=== PATIENT | male | born 2000 | race Caucasian/White ===

== ENCOUNTER 2019-12-22 20:35 | Emergency (ER) | payer OTHER ==
--- OUTSIDE RECORDS SUMMARY | 2019-12-22 20:38 | XMS REPORT ---
:2000 Author Organization eClinicalWorks Care Team Providers Name Role Phone Conteh [facility] Provider Role Unavailable Allergies, Adverse Reactions, Alerts Substance Reaction Event Type N.K.D.A. Info Not Available Non Drug Allergy Problems Problem Type Condition Code Onset Dates Condition Statu s Assessment Adult BMI 25.0-25.9 kg/sq m Z68.25 Active Assessment Insomnia, unspecified type G47.00 A ctive Problem Current moderate episode of major F32.1 Active depressive disorder without prior episode Problem Generalized anxiety disorder F41.1 Active Problem Insomnia, unspecified type G47.00 A ctive Assessment Current moderate episode of major F32.1 Active depressive disorder without prior episode Assessment Generalized anxiety disorder F41.1 Active Assessment Well adult on routine health check Z00.00 Active Medications Medication Code Code Instructions Start End Date Status Dosage System Date Trazodone HCl ND 50541406987 100 MG Orally December 11, Active Take 1/2 Once a day 2019 tab QHS x 1 week then 1 tab QHS Zoloft ND 21712436865 100 MG Orally Active 1 tabl et Once a day Results No Known Results Summary Purpose eClinicalWorks Submission
--- OUTSIDE RECORDS SUMMARY | 2019-12-22 20:38 | XMS REPORT | Continuity of Care Document ---
:2000 Author Organization [facility] t Address [address] [place] [address] Care Team Providers Name Role Phone Unavailable Unavailable Unavailable Problems Condition Condition Condition Status Onset Resolution Last Treating Co mments Source Name Details Category Date Date Treatment Clinician Date Current Current Diagnosis Active [facility] episode of episode of Me moria major major l depressive depressive Ou tpati disorder disorder ent without without Clinics prior prior episode episode Generalize Generalize Problem Active [facility] d anxiety d anxiety [facility] - disorder disorder [facility] Insomnia, Insomnia, Problem Active [facility] unspecifie unspecifie Arabella kes - d type d type [facility] Allergies, Adverse Reactions, Alerts This patient has no known allergies or adverse reactions. Medications Ordered Filled Start Stop Current Ordering Indication Dosage Frequency Signature Comments Components Source Medication Medication Date Date Medication? Clinician (SIG) Name Name Trazodone Trazodone Yes Darius Take 1/[address] [facility] [address] HCl HCl 7-08 Conteh tab QHS x [facility] - 00:00: 1 week Memoria 00 then 1 tab l [facility] Zoloft Zoloft Yes Darius Take 1/[address] 3-20 Conteh tab QD x 1 [facility] - 00:00: week then Memoria 00 take 1 tab l QD [facility] Procedures This patient has no known procedures. Encounters Start End Encounter Admission Attending Care Care Encounter Source Date/Time Date/Time Type Type Clinicians Facility Department ID 2019-12-18 2019-12-18 [facility] [id number] [address] 11:17:00 11:17:00 t MAD Incubator [facility] Medicine Medicine [facility] 2019-12-12 2019-12-12 [facility] [id number] [address] 08:00:00 08:00:00 t MAD Incubator [facility] Medicine Outpati ent Clinics 2019-09-12 2019-09-12 [facility] [id number] 08:30:00 08:30:00 t MAD Incubator [facility] Medicine Outpati ent Clinics 2019-06-13 2019-06-13 [facility] [id number] 08:30:00 08:30:00 t MAD Incubator [facility] Medicine Outpati ent Clinics 2019-02-22 2019-02-22 [facility] [id number] [address] 11:15:00 11:15:00 t MAD Incubator [facility] Medicine Outpati ent Clinics 2018-09-26 2018-09-26 [facility] [id number] 14:45:00 14:45:00 t MAD Incubator [facility] Medicine Outpati ent Clinics 2018-08-23 2018-08-23 [facility] [id number] 10:15:00 10:15:00 t MAD Incubator [facility] Medicine Outpati ent Clinics Results This patient has no known results.
--- OUTSIDE RECORDS SUMMARY | 2019-12-22 20:38 | XMS REPORT ---
:2000 Author Organization eClinicalWorks Care Team Providers Name Role Phone Wero Darius Provider Role Unavailable Allergies No Known Allergies Problems Problem Type Condition Code Onset Dates Condition Statu s Problem Current moderate episode of major F32.1 Active depressive disorder without prior episode Problem Generalized anxiety disorder F41.1 Active Problem Insomnia, unspecified type G47.00 A ctive Assessment Current moderate episode of major F32.1 Active depressive disorder without prior episode Medications Medication Code Code Instructions Start End Status Dosage System Date Date Zoloft ND 04116726149 50 MG Orally August Inactive Take 1 /2 Once a day 2018 tab QD x 1 week then take 1 tab QD Trazodone HCl ND [id number] 100 MG Orally December 11 Take 1/2 Once a day 2019 tab QHS x 1 week then 1 tab QHS Results No Known Results Summary Purpose eClinicalWorks Submission
--- NOTE | 2019-12-23 00:21 | EDPHYS ---
Physician Documentation [facility] Name: Kel Caraballo Age: 19 yrs Sex: Male : 2000 Arrival Date: 12/22/2019 Time: 20:38 Bed 18 Private MD: Wero [facility] ED Physician Helio Friedman HPI: 12/22 00:12 This 19 yrs old Male presents to ER via Ambulatory with complaints of Fall mh7 Injury, Head Injury Without LOC-Adult. 00:12 Details of fall: The patient fell from an upright position, while walking. Onset: The mh7 symptoms/episode began/occurred today, at 19:00. Associated injuries: The patient sustained injury to the head, contusion. Severity of symptoms: At their worst the symptoms were mild, earlier today, in the emergency department the symptoms have improved, markedly. Patient states that he slipped and fell due to wet floor at work tonight. He states that he hit the back of his head on the floor. He denies any LOC or neck pain. He states that his work sent him to the ER for evaluation.. Historical: - Allergies: 12/21 20:54 No Known Allergies; ll1 - PSHx: 20:54 None; ll1 - Immunization history:: Flu vaccine is up to date. - Social history:: Smoking status: Patient/guardian denies using tobacco, Stopped _ months ago 3 Patient/guardian denies using alcohol, street drugs. ROS: 12/22 00:15 Constitutional: Negative for fever, chills, and weight loss, Eyes: Negative for injury, mh7 pain, redness, and discharge, ENT: Negative for injury, pain, and discharge, Neck: Negative for injury, pain, and swelling, Cardiovascular: Negative for chest pain, palpitations, and edema, Respiratory: Negative for shortness of breath, cough, wheezing, and pleuritic chest pain, Abdomen/GI: Negative for abdominal pain, nausea, vomiting, diarrhea, and constipation, Back: Negative for injury and pain, : Negative for injury, bleeding, discharge, and swelling, MS/Extremity: Negative for injury and deformity, Skin: Negative for injury, rash, and discoloration, Psych: Negative for depression, anxiety, suicide ideation, homicidal ideation, and hallucinations, Allergy/Immunology: Negative for hives, rash, and allergies, Endocrine: Negative for neck swelling, polydipsia, polyuria, polyphagia, and marked weight changes, Hematologic/Lymphatic: Negative for swollen nodes, abnormal bleeding, and unusual bruising. Exam: 00:15 Constitutional: This is a well developed, well nourished patient who is awake, alert, mh7 and in no acute distress. 00:15 Eyes: Pupils equal round and reactive to light, extra-ocular motions intact. Lids and lashes normal. Conjunctiva and sclera are non-icteric and not injected. Cornea within normal limits. Periorbital areas with no swelling, redness, or edema. ENT: Nares patent. No nasal discharge, no septal abnormalities noted. Tympanic membranes are normal and external auditory canals are clear. Oropharynx with no redness, swelling, or masses, exudates, or evidence of obstruction, uvula midline. Mucous membranes moist. Neck: Trachea midline, no thyromegaly or masses palpated, and no cervical lymphadenopathy. Supple, full range of motion without nuchal rigidity, or vertebral point tenderness. No Meningismus. Chest/axilla: Normal chest wall appearance and motion. Nontender with no deformity. No lesions are appreciated. Cardiovascular: Regular rate and rhythm with a normal S1 and S2. No gallops, murmurs, or rubs. Normal PMI, no JVD. No pulse deficits. Respiratory: Lungs have equal breath sounds bilaterally, clear to auscultation and percussion. No rales, rhonchi or wheezes noted. No increased work of breathing, no retractions or nasal flaring. Abdomen/GI: Soft, non-tender, with normal bowel sounds. No distension or tympany. No guarding or rebound. No evidence of tenderness throughout. Back: No spinal tenderness. No costovertebral tenderness. Full range of motion. Skin: Warm, dry with normal turgor. Normal color with no rashes, no lesions, and no evidence of cellulitis. MS/ Extremity: Pulses equal, no cyanosis. Neurovascular intact. Full, normal range of motion. Neuro: Awake and alert, GCS 15, oriented to person, place, time, and situation. Cranial nerves II-XII grossly intact. Motor strength 5/5 in all extremities. Sensory grossly intact. Cerebellar exam normal. Normal gait. Psych: Awake, alert, with orientation to person, place and time. Behavior, mood, and affect are within normal limits. 00:15 Head/face: Noted is contusion, that is superficial, of the posterior scalp, tenderness, that is mild, of the posterior scalp. Vital Signs: 12/21 20:53 BP 141 / 93; Pulse 110; Resp 17; Temp 98.8; Pulse Ox 96% ; Pain 5/10; ll1 12/22 00:35 BP 128 / 59; Pulse 69; Resp 16; Temp 98.0(O); Pulse Ox 99% on R/A; Pain 0/10; mt2 [place] Coma Score: 00:35 Eye Response: spontaneous(4). Verbal Response: oriented(5). Motor Response: obeys mt2 commands(6). Total: 15. Trauma Score (Adult): 00:35 Eye Response: spontaneous(1); Verbal Response: oriented(1); Motor Response: obeys mt2 commands(2); Systolic BP: > 89 mm Hg(4); Respiratory Rate: 10 to 29 per min(4); [place] Score: 15; Trauma Score: 12 MDM: 00:07 Patient medically screened. [facility] 00:15 Differential diagnosis: abrasion, closed head injury, contusion, fracture. Data [facility] reviewed: vital signs, nurses notes. Data interpreted: Pulse oximetry: on room air is 96 %. Interpretation: normal. Counseling: I had a detailed discussion with the patient and/or guardian regarding: the historical points, exam findings, and any diagnostic results supporting the discharge/admit diagnosis, the presence of at least one elevated blood pressure reading (>120/80) during this emergency department visit. Counseling: I had a detailed discussion with the patient and/or guardian regarding: the need for outpatient follow up, to return to the emergency department if symptoms worsen or persist or if there are any questions or concerns that arise at home. Refusal of service: The patient/guardian displays adequate decision making capability and despite a detailed discussion of alternatives, benefits, risks, and consequences refuses: CT Scan. Administered Medications: No medications were administered Disposition: 12/23/19 00:20 Discharged to Home. Impression: Head Injury without LOC, Head Contusion. - Condition is Stable. - Discharge Instructions: Head Injury, Adult, [id number]. - Medication Reconciliation Form, Thank You Letter, Antibiotic Education, Prescription Opioid Use form. - Follow up: Private Physician; When: 1 - 2 days; Reason: Worsening of condition, Recheck today's complaints, Continuance of care, Re-evaluation by your physician. Follow up: Emergency Department; When: As needed; Reason: Worsening of condition, Recheck today's complaints. - Problem is new. - Symptoms have improved. Signatures: Sebastian Tirado RN RN 1 Helio Friedman MD MD 7 Jolene Finley RN RN mt2 Corrections: (The following items were deleted from the chart) 01:02 00:20 12/23/2019 00:20 Discharged to Home. Impression: Head Injury without LOC; Head mt2 Contusion. Condition is Stable. Forms are Medication Reconciliation Form, Thank You Letter, Antibiotic Education, Prescription Opioid Use. Follow up: Private Physician; When: 1 - 2 days; Reason: Worsening of condition, Recheck today's complaints, Continuance of care, Re-evaluation by your physician. Follow up: Emergency Department; When: As needed; Reason: Worsening of condition, Recheck today's complaints. Problem is new. Symptoms have improved. mh7
--- NOTE | 2019-12-23 00:21 | ER ---
Nurse's Notes [facility] Name: Kel Caraballo Age: 19 yrs Sex: Male : 2000 Arrival Date: 12/22/2019 Time: 20:38 Bed 18 Private MD: Darius Conteh Diagnosis: Head Injury without LOC;Head Contusion Presentation: 12/21 20:53 Coronavirus screen: Patient denies a cough. Patient denies shortness of breath or ll1 difficulty breathing. Patient denies measured and/or subjective temperature greater than 100.4F prior to today's visit. Patient denies travel on a cruise ship or to a country the [facility] currently lists as an affected area. Patient denies contact with known and/or suspected case of COVID-19. Proceed with normal triage. Ebola Screen: Patient denies travel to an Ebola-affected area in the 21 days before illness onset. Initial Sepsis Screen: Does the patient meet any 2 criteria? No. Patient's initial sepsis screen is negative. Does the patient have a suspected source of infection? No. Patient's initial sepsis screen is negative. Risk Assessment: Do you want to hurt yourself or someone else? Patient reports no desire to harm self or others. 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 No LOC. + OVIEDO and lightheaded since. No N/V. Historical: - Allergies: 20:54 No Known Allergies; ll1 - PSHx: 20:54 None; ll1 - Immunization history:: Flu vaccine is up to date. - Social history:: Smoking status: Patient/guardian denies using tobacco, Stopped _ months ago 3 Patient/guardian denies using alcohol, street drugs. Screenin:00 Tuberculosis screening: No symptoms or risk factors identified. Fall risk None mt2 identified. 12/22 00:35 Abuse screen: Denies threats or abuse. mt2 Assessment: 12/21 23:50 Reassessment: Patient and/or family updated on plan of care and expected duration. Pain mt2 level reassessed. Patient denies pain at this time. General: Appears in no apparent distress. comfortable, Behavior is cooperative. Pain: Denies pain. Neuro: Reports FALLING AND HITTING HEAD. DENIES LOC. EENT: No deficits noted. Cardiovascular: No deficits noted. Respiratory: No deficits noted. GI: No deficits noted. : No deficits noted. Derm: No deficits noted. Musculoskeletal: No deficits noted. Vital Signs: 20:53 BP 141 / 93; Pulse 110; Resp 17; Temp 98.8; Pulse Ox 96% ; Pain 5/10; ll1 12/22 00:35 BP 128 / 59; Pulse 69; Resp 16; Temp 98.0(O); Pulse Ox 99% on R/A; Pain 0/10; mt2 [place] Coma Score: 00:35 Eye Response: spontaneous(4). Verbal Response: oriented(5). Motor Response: obeys mt2 commands(6). Total: 15. Trauma Score (Adult): 00:35 Eye Response: spontaneous(1); Verbal Response: oriented(1); Motor Response: obeys mt2 commands(2); Systolic BP: > 89 mm Hg(4); Respiratory Rate: 10 to 29 per min(4); [place] Score: 15; Trauma Score: 12 ED Course: 12/21 20:38 Patient arrived in ED. do 20:38 Darius Conteh DO is Private Physician. do 20:53 Triage completed. ll1 20:54 Arm band placed on Patient notified of wait time. 1 23:49 Helio Friedman MD is Attending Physician. 7 23:55 Jolene Finley RN is Primary Nurse. mt2 12/22 00:35 Patient has correct armband on for positive identification. Call light in reach. Side mt2 rails up X 1. 00:35 Patient maintains SpO2 saturation greater than 95% on room air. mt2 01:01 No provider procedures requiring assistance completed. mt2 Administered Medications: No medications were administered Outcome: 00:20 Discharge ordered by . 7 00:35 Discharged to home ambulatory. mt2 00:35 Condition: good 00:35 Discharge instructions given to patient, Instructed on discharge instructions, follow up and referral plans. Demonstrated understanding of instructions, follow-up care. 00:35 Patient's length of stay was not longer than 2 hours. 01:02 Patient left the ED. mt2 Signatures: Haydee Parks Lynsay RN RN ll1 Helio Friedman MD MD mh7 Jolene Finley, NA RN mt2
[2019-12-23 01:07] VITALS: BP 128/59; TEMP 98; O2SAT 99
== END 2019-12-23 01:02 | disposition home or self-care (01) ==
LOC: ER 20:35
DX: S00.03XA Contusion of scalp, initial encounter (principal); W01.198A Fall on same level from slipping, tripping and stumbling with subsequent striking against other object, initial encounter; Y93.01 Activity, walking, marching and hiking; Y92.89 Other specified places as the place of occurrence of the external cause; Y99.8 Other external cause status
CPT/HCPCS: 99284

== ENCOUNTER 2021-11-24 08:49 | Emergency (ER) | payer BC, OTHER ==
--- OUTSIDE RECORDS SUMMARY | 2021-11-24 08:51 | XMS REPORT | Continuity of Care Document ---
:2000 Author Organization [facility] t Address [address] [place] [address] Care Team Providers Name Role Phone Pcp, Does Not Have A Primary Care Physician Wero Attending Clinician Unavailable Drea MONZON T Attending Clinician Unavailable Sander [facility] Attending Clinician SANDER Attending Clinician Unavailable Payers Payer Name Policy Type Policy Number Effective Date Expiration Date S ource Problems Condition Condition Condition Status Onset Resolution Last Treating Co mments Source Name Details Category Date Date Treatment Clinician Date Current Current Diagnosis Active Commo n moderate moderate [facility] episode of episode of - [facility] major major St depressive depressive Arabella kes disorder disorder Medica l without without Center prior prior episode episode Generalize Generalize Problem Active C ommon d anxiety d anxiety Spir it disorder disorder - [facility] Insomnia, Insomnia, Problem Active Com mon unspecifie unspecifie Sp megan d type d type - [facility] No known No known Disease Unive rs active active ity of problems problems [facility] Allergies, Adverse Reactions, Alerts Allergy Allergy Status Severity Reaction(s) Onset Inactive Treating Comm ents Source Name Type Date Date Clinician NO KNOWN Drug Active Univers ALLERGIE Class ity of S [facility] Social History Social Habit Start Date Stop Date Quantity Comments Source Exposure to Not sure [facility] SARS-CoV-2 (event) Medica l Branch Tobacco use and 2021-02-03 2021-02-03 Never used [facility] exposure 00:00:00 00:00:00 [facility] Sex Assigned [birth year] [facility] 00:00:00 00:00:00 Medical Branch Smoking Status Start Date Stop Date Source Former smoker 2021-02-03 00:00:00 2021-02-03 00:00:00 [facility] Medications Ordered Filled Start Stop Current Ordering Indication Dosage Frequency Signature Comments Components Source Medication Medication Date Date Medication? Clinician (SIG) Name Name Trazodone Trazodone 2019-0 Yes Darius Take 1/2 Common HCl HCl 7-08 Conteh tab QHS x [facility] 00:00: 1 week [facility] [address] [facility] Zoloft 2018-0 Yes Darius Take 1/2 Com mon 3-20 Conteh tab QD x 1 [facility] 00:00: week then - [facility] [address] QD [facility] No known No Univers medications [facility] No known No Univers medications [facility] No known No Univers medications [facility] Vital Signs Vital Name Observation Time Observation Value Comments Source Systolic blood 2021-02-04 00:39:00 125 [facility]Hg[facility] 2021-02-04 00:39:00 82 mm[Hg] Unive [facility] Heart rate 2021-02-04 00:39:00 96 /min [facility] Body temperature 2021-02-04 00:39:00 37.39 Stacie [facility] Respiratory rate 2021-02-04 00:39:00 18 /min [facility] Body weight 2021-02-04 00:39:00 90.084 kg [facility] Oxygen saturation in 2021-02-04 00:39:00 97 /min [facility] Arterial blood by [facility] Pulse oximetry Branch Procedures This patient has no known procedures. Encounters Start End Encounter Admission Attending Care Care Encounter Source Date/Time Date/Time Type Type Clinicians Facility Department ID 2021-07-01 Outpatient [facility] [id number] Common 11:30:20 Darius [id number] 2021-07-01 Outpatient Conteh, [facility] [id number] Common 11:17:26 Darius [id number] 2021-07-01 Outpatient Conteh [facility] [id number] Common 11:17:01 [facility] [id number] 2021-02-06 2021-02-06 Letter DreaEUSEBIO valle [id number] Univers 00:00:00 00:00:00 (Out) Madeline Barragan ANA [id number] it y of [facility] [id number] Arnel as [id number] [address] 2021-02-03 2021-02-03 Urgent [facility] [id number] Univers 19:14:33 19:53:28 Care [facility] [id number] it y of [place] [id number] Arnel as Herminio?Blea [id number] [address] Medical Office Building 2021-02-03 2021-02-03 [facility] [id number] [facility] 19:20:00 19:20:[address] [facility] 2019-12-18 2019-12-18 [id number] Common 11:17:00 11:17:[address] [facility] 2019-12-12 2019-12-12 [facility] [id number] Common 08:00:00 08:00:[address] [facility] 2019-09-12 2019-09-12 [facility] [id number] Common 08:30:00 08:30:[address] [facility] 2019-06-13 2019-06-13 [facility] [id number] Common 08:30:00 08:30:[address] [facility] 2019-02-22 2019-02-22 [facility] [id number] Common 11:15:00 11:15:[address] [facility] 2018-09-26 2018-09-26 [facility] [id number] Common 14:45:00 14:45:[address] [facility] 2018-08-23 2018-08-23 Outpatient Gino [place] [id number] Common 10:15:00 10:15:[address] [facility] Results This patient has no known results.
[2021-11-24] MEDS ORDERED: AZITHROMYCIN 250 MG TAB ONE (09:16)
[2021-11-24] MEDS ORDERED: KETOROLAC 30 MG/ML INJ ONE (09:16)
[2021-11-24] MEDS ORDERED: CEFTRIAXONE 1000 MG/VIAL ONE (09:16)
[2021-11-24] MEDS ORDERED: NA CHLORIDE 0.9% 100 ML ONE (09:17)
[2021-11-24] MEDS ORDERED: ONDANSETRON 4 MG/2 ML VIAL ONE (09:17)
[2021-11-24 09:39] LABS: Absolute Lymphocytes (CBC) 2.1 K/uL (0.7-4.9); Lymphocytes % 39.9 % (15.3-44.8); MPV 7.8 fL (7.6-11.3); RBC Red Blood Cell Count 5.31 M/uL (4.33-5.43)
[2021-11-24 09:54] LABS: Albumin 4.4 g/dL (3.4-5.0); Bilirubin Total 0.8 mg/dL (0.2-1.0); Potassium 3.8 mmol/L (3.5-5.1); Protein, Total 7.6 g/dL (6.4-8.2)
--- NOTE | 2021-11-24 09:57 | RAD REPORT ---
EXAM DESCRIPTION: US - Scrotum Testicles - 11/24/2021 9:28 am CLINICAL HISTORY: Testicular pain and swelling COMPARISON: None FINDINGS: Right testicle measures 4.6 x 2.7 x 3.5 centimeters. Echotexture is homogeneous. Normal bl ood flow Left testicle measures 4.5 x 2.2 x 3.2 centimeters. Echotexture is homogeneous. Normal blood flow Right epididymis contains increased blood flow. Normal blood flow left epididymis. Moderate to large left hydrocele IMPRESSION: Right epididymitis Moderate to large left hydrocele
[2021-11-24] MEDS ORDERED: DOXYCYCLINE 100 MG CAP PO ONE (10:45)
--- NOTE | 2021-11-24 11:12 | ER ---
Nurse's Notes [facility] Name: Kel Caraballo Age: 21 yrs Sex: Male : 2000 Arrival Date: 11/24/2021 Time: 08:50 Bed 16 Private MD: Diagnosis: Epididymitis;Hydrocele, unspecified Presentation: 11/24 08:59 Chief complaint: Patient states: Noticed Right testicle swollen and red this morning vg1 and stated "its in a weird position" denies any burning or difficulty urinating, stated lower ABD pressure. Coronavirus screen: Vaccine status: Patient reports receiving the 2nd dose of the covid vaccine. Client denies travel out of the [place] in the last 14 days. Ebola Screen: Patient denies exposure to infectious person. Patient denies travel to an Ebola-affected area in the 21 days before illness onset. Initial Sepsis Screen: Does the patient meet any 2 criteria? No. Patient's initial sepsis screen is negative. Does the patient have a suspected source of infection? No. Patient's initial sepsis screen is negative. Risk Assessment: Do you want to hurt yourself or someone else? Patient reports no desire to harm self or others. Onset of symptoms was November 24, 2021. 08:59 Method Of Arrival: Ambulatory vg1 08:59 Acuity: DANYEL 3 vg1 Triage Assessment: 09:01 General: Appears uncomfortable, Behavior is calm, cooperative. Pain: Complains of pain vg1 in pelvis Pain currently is 7 out of 10 on a pain scale. : Denies burning with urination, incontinence, pain with urination urinary frequency. Historical: - Allergies: 09:01 No Known Allergies; vg1 - Immunization history:: Client reports receiving the 2nd dose of the Covid vaccine. - Social history:: Smoking status: Reported history of juuling and/or vaping. Screenin:34 Abuse screen: Denies threats or abuse. Denies injuries from another. Nutritional ww screening: No deficits noted. Tuberculosis screening: No symptoms or risk factors identified. Fall Risk None identified. Assessment: 09:34 General: Appears uncomfortable, Behavior is calm, cooperative. Pain: Complains of pain ww in abdomen and groin. Neuro: Level of Consciousness is awake, alert, obeys commands, Oriented to person, place, time, situation, Moves all extremities. Gait is steady, Speech is normal. Cardiovascular: Capillary refill < 3 seconds Patient's skin is warm and dry. Chest pain is denied. Respiratory: Airway is patent Respiratory effort is even, unlabored, Respiratory pattern is regular, symmetrical. GI: Abdomen is non-distended, Abdomen is tender to palpation in suprapubic area. : Reports swelling in testicles. Derm: No signs and/or symptoms reported regarding the dermatologic system. Skin is intact, is healthy with good turgor, Skin is pink, warm \\T\\ dry. 10:11 Reassessment: Patient appears in no apparent distress at this time. No changes from ww previously documented assessment. Patient and/or family updated on plan of care and expected duration. Pain level reassessed. Patient is alert, oriented x 3, equal unlabored respirations, skin warm/dry/pink. Mom with patient. 11:47 Reassessment: Patient appears in no apparent distress at this time. No changes from ww previously documented assessment. Patient and/or family updated on plan of care and expected duration. Pain level reassessed. Patient is alert, oriented x 3, equal unlabored respirations, skin warm/dry/pink. Vital Signs: 08:55 BP 114 / 77; Pulse 73; Resp 18; Pulse Ox 100% on R/A; ww 08:59 BP 120 / 68; Pulse 85; Resp 16; Temp 98.1(TE); Pulse Ox 100% on R/A; Weight 88.45 kg; vg1 Height 6 ft. 1 in. (185.42 cm); Pain 7/10; 09:27 BP 123 / 78; Pulse 85; Resp 18; Pulse Ox 100% on R/A; ww 10:15 BP 123 / 81; Pulse 69; Resp 14; Pulse Ox 100% on R/A; ww 11:00 BP 124 / 83; Pulse 67; Resp 18; Pulse Ox 100% on R/A; ww 08:59 Body Mass Index 25.73 (88.45 kg, 185.42 cm) vg1 ED Course: 08:50 Patient arrived in ED. am2 08:55 Ronn Silva MD is Attending Physician. [facility] 09:01 Triage completed. vg1 09:01 Arm band placed on. 1 09:04 Bruna Saucedo, NA is Primary Nurse. ww 09:30 US Scrotum Testicles In Process Unspecified. EDWY 09:34 Patient has correct armband on for positive identification. Placed in gown. Bed in low ww position. Call light in reach. Side rails up X 1. Adult w/ patient. Pulse ox on. NIBP on. Warm blanket given. 09:34 Inserted saline lock: 20 gauge in left antecubital area, using aseptic technique. Blood ww collected. 11:10 Forrest Roe MD is Referral Physician. [facility] 11:48 No provider procedures requiring assistance completed. IV discontinued, intact, ww bleeding controlled, No redness/swelling at site. Pressure dressing applied. Administered Medications: 09:30 Drug: Ketorolac 30 mg Route: IVP; Site: left antecubital; ww 09:31 Drug: Zofran (Ondansetron) 4 mg Route: IVP; Site: left antecubital; ww 09:35 Drug: Zithromax (azithromycin) 1 grams Route: PO; ww 09:36 Drug: Rocephin (cefTRIAXone) 1 grams Route: IV; Rate: per protocol; Site: left ww antecubital; 10:41 Drug: Doxycycline 200 mg Route: PO; ww Outcome: 11:11 Discharge ordered by . mary 11:48 Discharged to home ambulatory, with family. ww 11:48 Condition: stable 11:48 Discharge instructions given to patient, family, Instructed on discharge instructions, follow up and referral plans. medication usage, safety practices, Demonstrated understanding of instructions, follow-up care, medications, Prescriptions given X 11:49 Patient left the ED. ww Signatures: Dispatcher [employer] [facility] Ronn Silva MD MD cha Moreno, Amanda am2 Garcia, Victoria, RN RN vg1 Bruna Saucedo, NA RN ww
--- NOTE | 2021-11-24 11:12 | EDPHYS ---
Physician Documentation [facility] Name: Kel Caraballo Age: 21 yrs Sex: Male : 2000 Arrival Date: 11/24/2021 Time: 08:50 Bed 16 Private MD: ED Physician Ronn Silva HPI: 11/24 11:03 This 21 yrs old Male presents to ER via Ambulatory with complaints of mary Testicular Swelling, Testicular Pain. 11:03 The patient presents with scrotal pain, of the right side, tenderness, that is mary moderate, of the right testicle. Onset: The symptoms/episode began/occurred this morning. Modifying factors: The symptoms are alleviated by remaining still, the symptoms are aggravated by movement, pressure. Associated signs and symptoms: The patient has no apparent associated signs or symptoms. Severity of symptoms: At their worst the symptoms were mild, in the emergency department the symptoms are unchanged. The patient has not experienced similar symptoms in the past. Historical: - Allergies: 09:01 No Known Allergies; vg1 - Immunization history:: Client reports receiving the 2nd dose of the Covid vaccine. - Social history:: Smoking status: Reported history of juuling and/or vaping. ROS: 11:04 Constitutional: Negative for fever, chills, and weight loss, Eyes: Negative for injury, mary pain, redness, and discharge, ENT: Negative for injury, pain, and discharge, Neck: Negative for injury, pain, and swelling, Cardiovascular: Negative for chest pain, palpitations, and edema, Respiratory: Negative for shortness of breath, cough, wheezing, and pleuritic chest pain, Abdomen/GI: Negative for abdominal pain, nausea, vomiting, diarrhea, and constipation, Back: Negative for injury and pain, MS/Extremity: Negative for injury and deformity, Skin: Negative for injury, rash, and discoloration, Neuro: Negative for headache, weakness, numbness, tingling, and seizure, Psych: Negative for depression, anxiety, suicide ideation, homicidal ideation, and hallucinations, Allergy/Immunology: Negative for hives, rash, and allergies, Endocrine: Negative for neck swelling, polydipsia, polyuria, polyphagia, and marked weight changes. 11:04 : Positive for testicular pain of the right testicle. Exam: 11:04 Constitutional: This is a well developed, well nourished patient who is awake, alert, mary and in no acute distress. Head/Face: Normocephalic, atraumatic. Eyes: Pupils equal round and reactive to light, extra-ocular motions intact. Lids and lashes normal. Conjunctiva and sclera are non-icteric and not injected. Cornea within normal limits. Periorbital areas with no swelling, redness, or edema. ENT: Nares patent. No nasal discharge, no septal abnormalities noted. Tympanic membranes are normal and external auditory canals are clear. Oropharynx with no redness, swelling, or masses, exudates, or evidence of obstruction, uvula midline. Mucous membranes moist. Neck: Trachea midline, no thyromegaly or masses palpated, and no cervical lymphadenopathy. Supple, full range of motion without nuchal rigidity, or vertebral point tenderness. No Meningismus. Chest/axilla: Normal chest wall appearance and motion. Nontender with no deformity. No lesions are appreciated. Cardiovascular: Regular rate and rhythm with a normal S1 and S2. No gallops, murmurs, or rubs. Normal PMI, no JVD. No pulse deficits. Respiratory: Lungs have equal breath sounds bilaterally, clear to auscultation and percussion. No rales, rhonchi or wheezes noted. No increased work of breathing, no retractions or nasal flaring. Abdomen/GI: Soft, non-tender, with normal bowel sounds. No distension or tympany. No guarding or rebound. No evidence of tenderness throughout. Back: No spinal tenderness. No costovertebral tenderness. Full range of motion. Skin: Warm, dry with normal turgor. Normal color with no rashes, no lesions, and no evidence of cellulitis. MS/ Extremity: Pulses equal, no cyanosis. Neurovascular intact. Full, normal range of motion. Neuro: Awake and alert, GCS 15, oriented to person, place, time, and situation. Cranial nerves II-XII grossly intact. Motor strength 5/5 in all extremities. Sensory grossly intact. Cerebellar exam normal. Normal gait. Psych: Awake, alert, with orientation to person, place and time. Behavior, mood, and affect are within normal limits. 11:04 : CVA tenderness, is absent, Male external genitalia: Circumcision noted. tenderness, of the epididymis area, Bladder: is normal, Sexual behavior: the patient is sexually active, not lately. Vital Signs: 08:55 BP 114 / 77; Pulse 73; Resp 18; Pulse Ox 100% on R/A; ww 08:59 BP 120 / 68; Pulse 85; Resp 16; Temp 98.1(TE); Pulse Ox 100% on R/A; Weight 88.45 kg; vg1 Height 6 ft. 1 in. (185.42 cm); Pain 7/10; 09:27 BP 123 / 78; Pulse 85; Resp 18; Pulse Ox 100% on R/A; ww 10:15 BP 123 / 81; Pulse 69; Resp 14; Pulse Ox 100% on R/A; ww 11:00 BP 124 / 83; Pulse 67; Resp 18; Pulse Ox 100% on R/A; ww 08:59 Body Mass Index 25.73 (88.45 kg, 185.42 cm) vg1 MDM: 08:55 Patient medically screened. [facility] 11:06 Differential diagnosis: UTI, prostatitis, urethritis. Data reviewed: vital signs, [facility] nurses notes, lab test result(s), CBC, electrolytes, urinalysis, radiologic studies, ultrasound. Data interpreted: [employer]: not applicable for this patient encounter. rate is 85 beats/min, rhythm is regular, Pulse oximetry: on room air is 100 %. Counseling: I had a detailed discussion with the patient and/or guardian regarding: the historical points, exam findings, and any diagnostic results supporting the discharge/admit diagnosis, radiology results, the need for outpatient follow up, for definitive care, a family practitioner, a urologist. 11/24 08:57 Order name: CBC with Diff; Complete Time: 10:32 [facility] 11/24 08:57 Order name: Comprehensive Metabolic Panel; Complete Time: 10:32 [facility] 11/24 08:57 Order name: US Scrotum Testicles; Complete Time: 10:32 [facility] Administered Medications: 09:30 Drug: Ketorolac 30 mg Route: IVP; Site: left antecubital; ww 09:31 Drug: Zofran (Ondansetron) 4 mg Route: IVP; Site: left antecubital; ww 09:35 Drug: Zithromax (azithromycin) 1 grams Route: PO; ww 09:36 Drug: Rocephin (cefTRIAXone) 1 grams Route: IV; Rate: per protocol; Site: left ww antecubital; 10:41 Drug: Doxycycline 200 mg Route: PO; Disposition Summary: 11/24/21 11:11 Discharge Ordered Location: Home mary Problem: new mary Symptoms: have improved mary Condition: Stable mary Diagnosis - Epididymitis mary - Hydrocele, unspecified mary Followup: mary - With: Private Physician - When: 2 - 3 days - Reason: Recheck today's complaints, Continuance of care, Re-evaluation by your physician Followup: mary - With: Forrest Roe MD - When: 2 - 3 days - Reason: Recheck today's complaints, Continuance of care, Re-evaluation by your physician Discharge Instructions: - Discharge Summary Sheet mary - Epididymitis mary - Testicular Self-Exam mary - Hydrocele, Adult mary - Testicular Self-Exam, [id number] mary Forms: - Medication Reconciliation Form mary - Thank You Letter mary - Antibiotic Education mary - Prescription Opioid Use mary - Work release form Prescriptions: - Ibuprofen 600 mg Oral Tablet - take 1 tablet by ORAL route every 6 hours As needed take with food; 30 tablet; mary Refills: 0, Product Selection Permitted - Doxycycline Hyclate 100 mg Oral Tablet - take 1 tablet by ORAL route every 12 hours; 20 tablet; Refills: 0, Product mary Selection Permitted - Tylenol-Codeine #3 300 mg-30 mg Oral - take 2 tablet by ORAL route every 6 hours; 15 tablet; Refills: 0, Product mary Selection Permitted Signatures: Dispatcher [employer] Ronn Amaro MD MD cha Garcia, Victoria RN RN vg1 Bruna Saucedo RN RN ww
[2021-11-24 11:55] VITALS: O2SAT 100
[2021-11-24 11:57] VITALS: TEMP 98.1
[2021-11-24 12:06] VITALS: BP 124/83
== END 2021-11-24 11:49 | disposition home or self-care (01) ==
LOC: ER 08:49
DX: N45.1 Epididymitis (principal); N43.3 Hydrocele, unspecified
CPT/HCPCS: 85025; 36415; 80053; 76870; J2405; 96374; 96375; 99284